=== PATIENT | male | born 1960 | race Caucasian/White ===

== ENCOUNTER 2018-03-16 16:46 | Emergency (ER) | payer OTHER ==
--- NOTE | 2018-03-16 16:53 | ER Document Report ---
ED Extremity Problem, Lower - General Chief Complaint: Fall Stated Complaint: FALL,KNEE INJURY Time Seen by Provider: 03/16/18 16:52 Notes: The patient is a 57-year-old male who presents with left knee pain after he tripped down 3 stairs earlier today and landed directly on the left knee. He arrived by EMS and was placed in a left knee splint by EMS. Patient was given 100 mcg fentanyl and 4 mg Zofran by EMS prior to arrival. He is having trouble lifting his left leg off the bed. He denies numbness, tingling or open wounds. - Related Data Allergies/Adverse Reactions: No Known Allergies Allergy (Unverified 03/16/18 17:08) Past Medical History - General Information source: Patient - Social History Smoking Status: Unknown if Ever Smoked Family History: Reviewed & Not Pertinent Review of Systems - Review of Systems Notes: REVIEW OF SYSTEMS: CONSTITUTIONAL: -fevers, -chills EENT: -eye pain, -difficulty swallowing, -nasal congestion CARDIOVASCULAR: -chest pain, -syncope. RESPIRATORY: -cough, -SOB GASTROINTESTINAL: -abdominal pain, -nausea, -vomiting, -diarrhea GENITOURINARY: -dysuria, -hematuria MUSCULOSKELETAL: +left knee pain, -back pain, -neck pain SKIN: -rash or skin lesions. HEMATOLOGIC: -easy bruising or bleeding. LYMPHATIC: -swollen, enlarged glands. NEUROLOGICAL: -altered mental status or loss of consciousness, -headache, - neurologic symptoms PSYCHIATRIC: -anxiety, -depression. ALL OTHER SYSTEMS REVIEWED AND NEGATIVE. Physical Exam - Vital signs Vitals: Temp Pulse Resp BP Pulse Ox 99.2 F 77 20 158/87 H 95 03/16/18 17:08 03/16/18 17:08 03/16/18 17:08 03/16/18 17:08 03/16/18 17:08 - Notes Notes: PHYSICAL EXAMINATION: GENERAL: Well-appearing, well-nourished and in no acute distress. HEAD: Atraumatic, normocephalic. EYES: Pupils equal round and reactive to light, extraocular movements intact, sclera anicteric, conjunctiva are normal. ENT: nares patent, oropharynx clear without exudates. Moist mucous membranes. NECK: Normal range of motion, supple without lymphadenopathy LUNGS: Breath sounds clear to auscultation bilaterally and equal. No wheezes rales or rhonchi. HEART: Regular rate and rhythm without murmurs ABDOMEN: Soft, nontender, normoactive bowel sounds. No guarding, no rebound. No masses appreciated. EXTREMITIES: Unable to lift left leg off bed. Tenderness over left suprapatellar region, mild left knee effusion, strong distal pulses. No pitting or edema. No cyanosis. NEUROLOGICAL: Cranial nerves grossly intact. Normal speech. Normal sensory and motor exams. PSYCH: Normal mood, normal affect. SKIN: Warm, Dry, normal turgor, no rashes or lesions noted. Course - Re-evaluation Re-evalutation: Patient has no acute fractures on x-ray. He is neurovascularly intact distally. He is unable to raise his left leg off the bed and suspect that he may have a quadricep tendon injury. Placed him in a knee immobilizer with crutches. He will will follow up with an orthopedic surgeon when he returns to [place] this week. - Vital Signs Vital signs: Temp Pulse Resp BP Pulse Ox 99.2 F 77 20 158/87 H 95 03/16/18 17:08 03/16/18 17:08 03/16/18 17:08 03/16/18 17:08 03/16/18 17:08 - Diagnostic Test Radiology reviewed: Image reviewed, Reports reviewed Radiology results interpreted by me: Left knee x-ray: Small joint effusion. No evidence of acute osseous injury. Procedures - Immobilization Left Knee Time completed: 17:55 Pre-Proc Neuro Vasc Exam: Normal Immobilizer type: Knee immobilizer Performed by: PCT Post-Proc Neuro Vasc Exam: Normal Alignment checked and good: Yes Discharge - Discharge Clinical Impression: Other specified injury of left quadriceps muscle, fascia and tendon, initial encounter Left knee pain Qualifiers: Chronicity: acute Qualified Code(s): M25.562 - Pain in left knee Condition: Stable Disposition: HOME, SELF-CARE Additional Instructions: Keep your left knee in the knee immobilizer and use crutches. There is a concern for quadricep tendon rupture on exam today. Follow-up with the orthopedic surgeon for recheck of your symptoms. Take Motrin 600 mg every 6 hours. Use [place] for severe pain. You may also apply ice packs as needed. Knee Immobilizing Splint The knee immobilizing splint will protect the injury while healing begins. This type of splint does not allow the knee to bend at all. No running or sports will be possible. If the splint allows painfree walking, it's giving adequate protection. If there is still significant pain, crutches may be needed as well. Don't do anything that hurts. Adjusted the splint, if necessary. The stiffeners on the sides are attached with Velcro, so they can be easily moved to adjust for thigh and calf size. If you need help with these adjustments, come back. You will lose muscle strength in the thigh while using this splint. The doctor will advise you if it's safe to do isometric knee exercises while you use it. Prescriptions: Hydrocodone/Acetaminophen [[place] 5-325 mg Tablet] 1 tab PO Q6H PRN #14 tablet PRN Reason: Forms: Elevated Blood Pressure Referrals: JAMISON YU MD [ACTIVE STAFF] - Follow up as needed
--- NOTE | 2018-03-16 17:24 | RADIOLOGY REPORT (SQ) ---
EXAM DESCRIPTION: KNEE LEFT 4 VIEW COMPLETED DATE/TIME: 03/16/2018 5:15 pm REASON FOR STUDY: fall COMPARISON: None. NUMBER OF VIEWS: Four views. TECHNIQUE: AP, lateral, and both oblique radiographic images acquired of the left knee. LIMITATIONS: Splinting material results in nonstandard patient positioning. FINDINGS: MINERALIZATION: Normal. BONES: No acute fracture or dislocation. No worrisome bone lesions. JOINT: Small joint effusion. SOFT TISSUES: No soft tissue swelling. No radio-opaque foreign body. OTHER: No other significant finding. IMPRESSION: Small joint effusion. No evidence of acute osseous injury. TECHNICAL DOCUMENTATION: JOB ID: [id number] [employer]- All Rights Reserved Reading location - IP/workstation name: [email or web address]
[2018-03-16] MEDS ORDERED: NAPROXEN 250 MG TABLET PO ONE (17:51)
[2018-03-16] MEDS ORDERED: HYDROCODONE/ACETAMINOPHEN 5-325 MG TABLET PO ONE (17:51)
[2018-03-16 17:59] VITALS: BP 138/88
== END 2018-03-16 17:57 | disposition home or self-care (01) ==
LOC: ER 16:46
DX: S76.102A Unspecified injury of left quadriceps muscle, fascia and tendon, initial encounter (principal); M25.562 Pain in left knee; M25.462 Effusion, left knee; W10.9XXA Fall (on) (from) unspecified stairs and steps, initial encounter
CPT/HCPCS: 99284; 73562; L1830